=== PATIENT | female | born 1960 | race Caucasian/White ===

== ENCOUNTER 2021-02-17 09:23 | Inpatient (IN) | payer BC ==
[2021-02-17] MEDS ORDERED: Zofran 4 MG/2 ML VIAL IV ONE (09:31)
[2021-02-17] MEDS ORDERED: PROTONIX 40 MG IV IV ONE ×2 (09:31→09:53)
[2021-02-17] MEDS ORDERED: SUBLIMAZE 100 MCG/2 ML IV ONE (09:31)
[2021-02-17] MEDS ORDERED: Sodium Chloride 0.9% 1000 ML 1,000 ML IV STA (09:31)
[2021-02-17] MEDS ORDERED: Sodium Chloride 0.9% 1000 ML 1,000 ML ONE (09:53)
[2021-02-17] MEDS ORDERED: Zofran 4 MG/2 ML VIAL ONE (09:53)
[2021-02-17 10:17] LABS: Absolute Neutrophil Ct (ANC) 3.73 (1.4-6.9); BASOPHIL % 0.2 % (0.0-0.4); Basophil (Absolute #) 0.01 (0-0.4); Eosinophil (Absolute #) 0 (0-0.5); Hematocrit 44.5 % (35-47); Hemoglobin 14.7 gm/dl (12.0-16.0); Lymphocyte (Absolute #) 0.88 (1.0-4.6); Lymphocytes % 16.6 % (24.0-44.0); Mean Cell Volume 92.7 fl (78-100); Mean Corpuscular Hemoglobin 30.6 pg (26-32); Monocyte (Absolute #) 0.68 (0.0-1.3); Monocytes % 12.8 % (0.0-12.0); Neutrophil % 70.4 % (36.0-66.0); Platelet Count 137 K/mm3 (150-450); Red Cell Distribution Width 12.3 % (11.5-14.0); White Blood Count 5.3 K/mm3 (4.0-10.5)
[2021-02-17 10:27] LABS: INR 1.1 (0.8-3.0)
[2021-02-17 10:46] LABS: ANION GAP 16.7 MEQ/L (5-15); BILIRUBIN,TOTAL 0.8 mg/dL (0.2-1.3); Calcium 8.4 mg/dL (8.4-10.2); Creatinine 1 1.01 mg/dL (0.52-1.04); EST GLOMERULAR FILTRATION RATE 59.4 ML/MIN; Potassium 4.4 mmol/L (3.5-5.1)
--- NOTE | 2021-02-17 10:59 | XRAY ---
Indication: Nausea and vomiting. Comparison: None Portable chest demonstrates diffuse bilateral hazy airspace opacities without consolidation/large effusion. Heart not enlarged. Bony thorax intact with mild degenerative changes.
--- NOTE | 2021-02-17 11:38 | XRAY ---
Indication: Nausea and vomiting. Multiple contiguous axial images obtained through the abdomen and pelvis using 80 cc Isovue 370 contrast. Comparison: None Lung bases demonstrates diffuse bilateral patchy airspace disease without effusion. Heart is not enlarged. Moderate size hiatal hernia with partial intrathoracic stomach. Noncontrasted stomach and bowel loops nonobstructed. Minimal sigmoid diverticulosis without diverticulitis. Hysterectomy, appendectomy, and cholecystectomy reported. No free fluid/air. 1.2 cm left renal cyst. Spleen is enlarged measuring 13 cm in greatest axial dimension. Remaining liver, pancreas, spleen, adrenal glands, kidneys, ureters, and bladder are unremarkable. Mild scattered aortoiliac calcifications. No AAA or pathologic retroperitoneal lymphadenopathy. Osseous structures intact with minimal/mild degenerative changes throughout the thoracolumbar spine. Impression: 1. Bilateral patchy airspace disease without consolidation/effusion. 2. Incidental hiatal hernia with partial intrathoracic stomach, sigmoid diverticulosis, left renal cyst, splenomegaly, and chronic bony findings.
--- NOTE | 2021-02-17 12:21 | ERPHSYRPT ---
- History of Present Illness Time Seen by Provider: 02/17/21 09:45 Historian: patient Exam Limitations: no limitations Patient Subjective Stated Complaint: Pt states that she has had dry heaves for the past 3 days and prior to that she had sinus issues and was placed on st eroids, pt now has diarrhea Triage Nursing Assessment: Pt brought to the hospital by her , hypoxic, denies pain, vomiting, placed on 2L NC, skin n/w/d, pulses normal, unable to eat or take meds for 3 days Physician History: Is a 60-year-old white female who presents with 3 days worth of dry heaving and then today she developed diarrhea she has had some fever but denies chills or sweats she says the pain is like and not crampy pain prior to dry heaves it hurts to dry heaves otherwise she has no pain previous surgeries include gallbladder and appendix. Timing/Duration: day(s) (3) Activities at Onset: none Quality: cramping, stabbing Abdominal Pain Onset Location: generalized abdomen Pain Radiation: no radiation Severity of Pain-Max: severe Severity of Pain-Current: moderate Modifying Factors: Improves With: vomiting Associated Symptoms: diarrhea, nausea Previous symptoms: no prior history Allergies/Adverse Reactions: amoxicillin Allergy (Verified 02/17/21 09:47) Home Medications: Amlodipine Besylate 5 mg [Norvasc 5 mg] 5 mg PO DAILY 02/17/21 [History] Oxybutynin Chloride 5 mg PO BID 02/17/21 [History] trandolapriL [Trandolapril] 4 mg PO BID 02/17/21 [History] Travel Risk - International Travel Have you traveled outside of the country in past 3 weeks: No - Coronavirus Screening Are you exhibiting any of the following symptoms?: No Close contact with a COVID-19 positive Pt in past 14-21 Days: No - Vaccine Status Have you recieved a Covid-19 vaccination: No - Review of Systems Constitutional: No Fever, No Chills Eyes: No Symptoms Ears, Nose, & Throat: No Symptoms Respiratory: No Cough, No Dyspnea Cardiac: No Chest Pain, No Edema, No Syncope Abdominal/Gastrointestinal: Abdominal Pain, Nausea, Vomiting, Diarrhea Genitourinary Symptoms: No Dysuria Musculoskeletal: No Back Pain, No Neck Pain Skin: No Rash Neurological: No Dizziness, No Focal Weakness, No Sensory Changes Psychological: No Symptoms Endocrine: No Symptoms All Other Systems: Reviewed and Negative - Past Medical History Pertinent Past Medical History: Yes Cardiac History: Hypertension - Past Surgical History Past Surgical History: Yes Gastrointestinal: Appendectomy, Cholecystectomy Female Surgical History: Hysterectomy - Social History Smoking Status: Never smoker Exposure to second hand smoke: No Drug Use: none Patient Lives Alone: No - Nursing Vital Signs Nursing Vital Signs: Initial Vital Signs Temperature 97.9 F 02/17/21 09:35 Pulse Rate 98 H 02/17/21 09:35 Respiratory Rate 19 02/17/21 09:35 Blood Pressure 125/85 02/17/21 09:35 O2 Sat by Pulse Oximetry 90 L 02/17/21 09:35 Pain Scale Pain Intensity 4 - Physical Exam General Appearance: mild distress, alert Eye Exam: PERRL/EOMI, eyes nml inspection Ears, Nose, Throat Exam: normal ENT inspection, pharynx normal, moist mucous membranes Neck Exam: normal inspection, non-tender, supple, full range of motion Respiratory Exam: normal breath sounds, lungs clear, No respiratory distress Cardiovascular Exam: regular rate/rhythm, normal heart sounds Gastrointestinal/Abdomen Exam: soft, tenderness, No mass, No guarding, No rebound Back Exam: normal inspection, normal range of motion, No CVA tenderness, No vertebral tenderness Extremity Exam: normal inspection, normal range of motion, pelvis stable Neurologic Exam: alert, oriented x 3, cooperative, normal mood/affect, nml cerebellar function, sensation nml, No motor deficits Skin Exam: normal color, warm, dry SpO2: 98 - Course Nursing assessment & vital signs reviewed: Yes EKG Interpreted by Me: RATE (95), Sinus Rhythm, NORMAL AXIS, NORMAL INTERVALS, NORMAL QRS, NORMAL ST-T - Radiology Exams Chest X-ray Interpretation: Interpreted by me (Bilateral bilateral patchy airspace disease without consolidation or effusion) - CT Exams Abdomen/Pelvis CT Interpretation: Negative Ordered Tests: Active Orders 24 hr Category Date Time Status EKG-ER Only STAT Care 02/17/21 09:31 Active IV Insertion STAT Care 02/17/21 09:31 Active ABDOMEN AND PELVIS W CONTRAST [CT] Stat Exams 02/17/21 09:32 Completed CHEST 1 VIEW (PORTABLE) Stat Exams 02/17/21 09:32 Completed AMYLASE Stat Lab 02/17/21 10:05 Completed CBC W DIFF Stat Lab 02/17/21 10:05 Completed CMP Stat Lab 02/17/21 10:05 Completed LIPASE Stat Lab 02/17/21 10:05 Completed Lactic Acid Stat Lab 02/17/21 09:31 Completed PROTIME WITH INR Stat Lab 02/17/21 10:05 Completed TROPONIN Q3H Lab 02/17/21 10:05 Completed TROPONIN Q3H Lab 02/17/21 12:45 Ordered TROPONIN Q3H Lab 02/17/21 15:45 Ordered TROPONIN Q3H Lab 02/17/21 18:45 Ordered TROPONIN Q3H Lab 02/17/21 21:45 Ordered UA W/RFX UR CULTURE Stat Lab 02/17/21 09:32 Ordered Medication Summary Discontinued Medications Generic Name Dose Route Start Last Admin Trade Name Freq PRN Reason Stop Dose Admin Fentanyl Citrate 75 mcg 02/17/21 09:31 Sublimaze 100 Mcg/2 Ml IV 02/17/21 09:32 STAT ONE Sodium Chloride 1,000 mls @ 999 mls/hr 02/17/21 09:31 02/17/21 11:20 Sodium Chloride 0.9% 1000 Ml IV 02/17/21 10:31 Infused .Q1H1M STA Infusion Sodium Chloride Confirm 02/17/21 09:53 Sodium Chloride 0.9% 1000 Ml Administered 02/17/21 09:54 Dose 1,000 mls @ ud .ROUTE .STK-MED ONE Ondansetron HCl 4 mg 02/17/21 09:31 02/17/21 09:54 Zofran 4 Mg/2 Ml Vial IV 02/17/21 09:32 4 mg STAT ONE Administration Ondansetron HCl Confirm 02/17/21 09:53 Zofran 4 Mg/2 Ml Vial Administered 02/17/21 09:54 Dose 4 mg .ROUTE .STK-MED ONE Pantoprazole Sodium 40 mg 02/17/21 09:31 02/17/21 09:54 Protonix 40 Mg Iv IV 02/17/21 09:32 40 mg STAT ONE Administration Pantoprazole Sodium Confirm 02/17/21 09:53 Protonix 40 Mg Iv Administered 02/17/21 09:54 Dose 40 mg IV .STK-MED ONE Lab/Rad Data: Laboratory Result Diagrams 02/17/21 10:05 07/28/21 10:05 Laboratory Results 02/17/21 02/17/21 02/17/21 Range/Units 10:05 10:05 10:05 WBC (4.0-10.5) K/mm3 RBC (4.1-5.4) M/mm3 Hgb (12.0-16.0) gm/dl Hct (35-47) % MCV (78-100) fl MCH (26-32) pg MCHC (32-36) g/dl RDW (11.5-14.0) % Plt Count (150-450) K/mm3 MPV (7.5-11.0) fl Gran % (36.0-66.0) % Eos # (Auto) (0-0.5) Absolute Lymphs (auto) (1.0-4.6) Absolute Monos (auto) (0.0-1.3) Lymphocytes % (24.0-44.0) % Monocytes % (0.0-12.0) % Eosinophils % (0.00-5.0) % Basophils % (0.0-0.4) % Absolute Granulocytes (1.4-6.9) Basophils # (0-0.4) PT 13.0 H (9.4-12.5) SECONDS INR 1.10 (0.8-3.0) Sodium (137-145) mmol/L Potassium (3.5-5.1) mmol/L Chloride (98-107) mmol/L Carbon Dioxide (22-30) mmol/L Anion Gap (5-15) MEQ/L BUN (7-17) mg/dL Creatinine (0.52-1.04) mg/dL Estimated GFR ML/MIN Glucose (74-106) mg/dL Lactic Acid (0.4-2.0) Calcium (8.4-10.2) mg/dL Total Bilirubin (0.2-1.3) mg/dL AST (14-36) U/L ALT (0-35) U/L Alkaline Phosphatase (38-126) U/L Troponin I < 0.012 (0.000-0.034) ng/mL Serum Total Protein (6.3-8.2) g/dL Albumin (3.5-5.0) g/dL Amylase (30-110) U/L Lipase (23-300) U/L SARS-CoV-2 (PCR) POSITIVE A (NEGATIVE) 02/17/21 02/17/21 02/17/21 Range/Units 10:05 10:05 09:31 WBC 5.3 (4.0-10.5) K/mm3 RBC 4.80 (4.1-5.4) M/mm3 Hgb 14.7 (12.0-16.0) gm/dl Hct 44.5 (35-47) % MCV 92.7 (78-100) fl MCH 30.6 (26-32) pg MCHC 33.0 (32-36) g/dl RDW 12.3 (11.5-14.0) % Plt Count 137 L (150-450) K/mm3 MPV 10.0 (7.5-11.0) fl Gran % 70.4 H (36.0-66.0) % Eos # (Auto) 0 (0-0.5) Absolute Lymphs (auto) 0.88 L (1.0-4.6) Absolute Monos (auto) 0.68 (0.0-1.3) Lymphocytes % 16.6 L (24.0-44.0) % Monocytes % 12.8 H (0.0-12.0) % Eosinophils % 0.0 (0.00-5.0) % Basophils % 0.2 (0.0-0.4) % Absolute Granulocytes 3.73 (1.4-6.9) Basophils # 0.01 (0-0.4) PT (9.4-12.5) SECONDS INR (0.8-3.0) Sodium 134 L (137-145) mmol/L Potassium 4.4 (3.5-5.1) mmol/L Chloride 94 L (98-107) mmol/L Carbon Dioxide 28 (22-30) mmol/L Anion Gap 16.7 H (5-15) MEQ/L BUN 18 H (7-17) mg/dL Creatinine 1.01 (0.52-1.04) mg/dL Estimated GFR 59.4 ML/MIN Glucose 146 H (74-106) mg/dL Lactic Acid 1.7 (0.4-2.0) Calcium 8.4 (8.4-10.2) mg/dL Total Bilirubin 0.80 (0.2-1.3) mg/dL AST 73 H (14-36) U/L ALT 38 H (0-35) U/L Alkaline Phosphatase 97 (38-126) U/L Troponin I (0.000-0.034) ng/mL Serum Total Protein 7.0 (6.3-8.2) g/dL Albumin 4.0 (3.5-5.0) g/dL Amylase 81 (30-110) U/L Lipase 74 (23-300) U/L SARS-CoV-2 (PCR) (NEGATIVE) - Progress Progress: improved Discussed with Dr.: Other (Dr Lazo) - Departure Departure Disposition: In-patient Admission Clinical Impression: COVID-19 Condition: Fair Critical Care Time: No Referrals: DOCTOR,NO FAMILY [Primary Care Provider] - Instructions: Wallace Diet, Nausea and Vomiting, Adult
[2021-02-17 13:04] LABS: Appearance SLIGHTLY CLOUDY (CLEAR); Bacteria RARE /HPF (NEGATIVE); Bilirubin NEGATIVE (NEGATIVE); Blood LARGE Ery/ul (0-5); Epithelial Cells RARE /HPF (FEW); Glucose NEGATIVE (NEGATIVE); Ketones TRACE (NEGATIVE); Leukocyte Esterase NEGATIVE (NEGATIVE); Mucus SLIGHT /HPF (NEGATIVE); Nitrite NEGATIVE (NEGATIVE); Protein,Urine Dip NEGATIVE (Negative); Specific Gravity 1.012 (1.005-1.025); Urobilinogen NEGATIVE mg/dL (0-1)
[2021-02-17] MEDS ORDERED: Zofran 4 MG/2 ML VIAL IV PRN (14:55)
[2021-02-17] MEDS ORDERED: REMDESIVIR 200 MG in Sodium Chloride 0.9% 250 ML 250 ML IV ONE (14:56)
[2021-02-17] MEDS ORDERED: Ativan 2 MG/1 ML VIAL IV PRN (14:57)
[2021-02-17] MEDS: Sodium Chloride 0.9% 1000 ML 1,000 ML IV SCH (15:32)
[2021-02-17] MEDS: TYLENOL EXTRA STRENGTH 500 MG PO PRN ×2 (15:40→22:21)
[2021-02-17] MEDS ORDERED: NAPROSYN 375 MG PO SCH (22:00)
[2021-02-17] MEDS ORDERED: TYLENOL 325 MG ONE (22:01)
[2021-02-17] MEDS ORDERED: Naprosyn 500 MG ONE (22:06)
[2021-02-17] MEDS: Mavik 2 MG PO SCH (22:17)
[2021-02-17] MEDS: Ditropan 5 MG PO SCH (22:18)
[2021-02-18 05:04] LABS: Hematocrit 40.3 % (35-47); Mean Cell Volume 95.5 fl (78-100); Mean Corpuscular Hemoglobin 30.8 pg (26-32); Mean Corpuscular Hgb Concent. 32.3 g/dl (32-36); Mean Platelet Volume 10.1 fl (7.5-11.0); Platelet Count 132 K/mm3 (150-450); Red Blood Count 4.22 M/mm3 (4.1-5.4); Red Cell Distribution Width 12.4 % (11.5-14.0); White Blood Count 5.2 K/mm3 (4.0-10.5)
[2021-02-18 05:47] LABS: ALBUMIN 3.3 g/dL (3.5-5.0); ANION GAP 12.2 MEQ/L (5-15); BILIRUBIN,TOTAL 0.5 mg/dL (0.2-1.3); Calcium 7.9 mg/dL (8.4-10.2); Creatinine 1 1.06 mg/dL (0.52-1.04); EST GLOMERULAR FILTRATION RATE 56.2 ML/MIN; Potassium 3.8 mmol/L (3.5-5.1); Total Protein 6.2 g/dL (6.3-8.2)
[2021-02-18 07:26] LABS: Lymphocytes 27 % (24-44); Monocyte 4 % (0.0-12.0); Neutrophils 69 % (36.0-66.0); Platelet Estimate NORMAL (NORMAL); Total Cells Counted 100
[2021-02-18] MEDS: TYLENOL EXTRA STRENGTH 500 MG PO PRN ×2 (07:30→21:47)
[2021-02-18] MEDS: Sodium Chloride 0.9% 1000 ML 1,000 ML IV SCH ×2 (08:32→21:48)
[2021-02-18] MEDS: NORVASC 5 MG PO SCH (09:52)
[2021-02-18] MEDS: ECOTRIN 81 MG PO SCH (09:52)
[2021-02-18] MEDS: Naprosyn 500 MG PO SCH ×2 (09:59→21:49)
[2021-02-18] MEDS: Ditropan 5 MG PO SCH ×2 (09:59→21:50)
[2021-02-18] MEDS: Mavik 2 MG PO SCH ×2 (10:00→21:50)
[2021-02-18] MEDS ORDERED: NON-FORMULARY ITEM (Naproxen Sodium [Aleve] 220 MG) PO SCH (10:00)
[2021-02-18] MEDS: DECADRON 10MG INJ. IV SCH (13:18)
[2021-02-18] MEDS: ENOXAPARIN SODIUM SQ SCH (13:19)
[2021-02-18] MEDS ORDERED: REMDESIVIR 100 MG in Sodium Chloride 0.9% 100 ML BAG 100 ML IV SCH (14:57)
--- NOTE | 2021-02-18 15:39 | HP ---
ADMISSION DIAGNOSES: 1) COVID. 2) Gastroenteritis. 3) COVID pneumonia. CHIEF COMPLAINT: Vomiting, diarrhea, shortness of breath. HISTORY OF PRESENT ILLNESS: The patient is a 60 year-old white female who had been healthy up until three days ago when she started having dry heaves, vomiting and headache. She was seen by a physician and was put on some steroids and now she has diarrhea. was quite concerned as she looked very ill to him and brought her into the hospital where it was found that she was hypoxic on 2 liters of O2 to get her O2 saturation above 88%. She has not eaten in three days. Normally she is healthy. She does not know where she got the COVID but she has been in and out of everywhere and we certainly have it in the community. She said there was no close contact with a positive patient. She has not received the vaccine. She has not had any international travel. PAST MEDICAL HISTORY: Hypertension, some back pain, spastic bladder. PAST SURGICAL HISTORY: Appendectomy. Cholecystectomy. MEDICATIONS: Norvasc 5 q.d., oxybutynin 5 b.i.d., tramadol 4 mg b.i.d. ALLERGIES: AMOXICILLIN. REVIEW OF SYSTEMS: CONSTITUTIONAL: No fevers. No chills. Aching all over. Vomiting and diarrhea. HEENT: No problems hearing or seeing. No taste change. CHEST: No cough. She did feel short of breath when she came in. CARDIAC: No history except for hypertension. No heart attacks, heart failure or valve problems. ABDOMEN: Diffuse abdominal pain, nausea, vomiting and diarrhea getting worse over three days. : She has frequent urination unless she takes oxybutynin. MUSCULOSKELETAL: No severe problems. Takes tramadol occasionally for pain. SOCIAL HISTORY: Never smoked, not exposed. Lives with her . PHYSICAL EXAMINATION: The patient is appropriately aged, pleasant, alert, orientated and looks ill. VITAL SIGNS: Temperature 97F, pulse 100, respirations 20, blood pressure 120/70. O2 saturation on 2 liters is 92%. Pain intensity is about 2 when I saw her. HEENT: Mouth is dry. NECK: Supple without adenopathy. CHEST: Clear. CVS: No murmurs or gallops. ABDOMEN: Soft. No tenderness. No masses. No organomegaly. EXTREMITIES: No edema. Knees are normal. Good pulses. IMPRESSION: 1) The patient has COVID gastroenteritis with vomiting and dehydration probably 5 to 10%. 2) The patient on chest x-ray does have some bilateral patchy infiltrates and she was hypoxic when she went to the emergency room. PLAN: The patient will be admitted with antiemetic, IV fluids. She will be given Remdesivir, Decadron and observed. I noticed her D-dimer on 02/18/2021 was only 911 so it was not very bad. PROGNOSIS: Good.
[2021-02-19] MEDS: DECADRON 10MG INJ. IV SCH (09:39)
[2021-02-19] MEDS: ENOXAPARIN SODIUM SQ SCH (09:39)
[2021-02-19] MEDS: NORVASC 5 MG PO SCH (09:39)
[2021-02-19] MEDS: ECOTRIN 81 MG PO SCH (09:39)
[2021-02-19] MEDS: Ditropan 5 MG PO SCH (09:55)
[2021-02-19] MEDS: Naprosyn 500 MG PO SCH (09:55)
[2021-02-19] MEDS: Mavik 2 MG PO SCH (09:56)
[2021-02-19 12:28] VITALS: BP 122/70; PULSE 70; O2SAT 95
== END 2021-02-19 14:11 | disposition home or self-care (01) | DRG 179 ==
LOC: ED 09:23 → MED SURG 12:55
PROVIDERS: ADMIT Family Medicine; ATTEND Family Medicine
DX: U07.1 COVID-19 (principal); J12.82 Pneumonia due to coronavirus disease 2019; K52.9 Noninfective gastroenteritis and colitis, unspecified; R11.2 Nausea with vomiting, unspecified; I10 Essential (primary) hypertension; Z79.899 Other long term (current) drug therapy; E86.0 Dehydration
CPT/HCPCS: 36000; 36415; 71045; 74177; 80053; 81001; 82150; 83605; 83690; 84484; 85025; 85379; 85610; 93005; 94762; 96360; 96374; 96375; 99284; J1100; J1650; J2405; U0003; A9270-GY

== ENCOUNTER 2022-05-18 15:35 | Emergency (ER) | payer BC ==
--- NOTE | 2022-05-18 15:43 | ERPHSYRPT ---
- History of Present Illness Time Seen by Provider: 05/18/22 15:43 Historian: patient Exam Limitations: no limitations Physician History: This is a 62-year-old white female who has had an appendectomy, hysterectomy and cholecystectomy in the past and presents with sudden onset of left lower quadrant and left flank pain that occurred approximately noon today prior to ar rival. She had associated nausea and vomiting. Patient denies chest pain. She denies shortness of breath. Timing/Duration: today Quality: sharpness, stabbing Abdominal Pain Onset Location: flank (Left) Pain Radiation: LLQ (Left) Severity of Pain-Max: moderate Severity of Pain-Current: moderate Modifying Factors: Improves With: nothing Associated Symptoms: diaphoresis, nausea, vomiting, No chest pain, No shortness of breath Previous symptoms: no prior history Allergies/Adverse Reactions: amoxicillin Allergy (Verified 05/18/22 15:43) Penicillins Allergy (Verified 05/18/22 15:43) Home Medications: Amlodipine Besylate 5 mg [Norvasc 5 mg] 5 mg PO DAILY 02/17/21 [History] Aspirin EC 81 mg [Ecotrin 81 mg] 81 mg PO DAILY 02/17/21 [History] Oxybutynin Chloride 1 tab PO BID 05/18/22 [History] trandolapriL [Trandolapril] 1 tab PO BID 05/18/22 [History] Travel Risk - International Travel Have you traveled outside of the country in past 3 weeks: No - Coronavirus Screening Are you exhibiting any of the following symptoms?: No Close contact with a COVID-19 positive Pt in past 14-21 Days: No - Vaccine Status Have you recieved a Covid-19 vaccination: No - Review of Systems Constitutional: No Symptoms Eyes: No Symptoms Ears, Nose, & Throat: No Symptoms Respiratory: No Symptoms Cardiac: Orthopnea Abdominal/Gastrointestinal: Abdominal Pain (Left lower quadrant) Genitourinary Symptoms: Flank Pain (Left) Musculoskeletal: No Symptoms Skin: No Symptoms Neurological: No Symptoms Psychological: No Symptoms Endocrine: No Symptoms Hematologic/Lymphatic: No Symptoms Immunological/Allergic: No Symptoms All Other Systems: Reviewed and Negative - Past Medical History Pertinent Past Medical History: Yes Cardiac History: Hypertension - Past Surgical History Past Surgical History: Yes Gastrointestinal: Appendectomy, Cholecystectomy Female Surgical History: Hysterectomy - Social History Smoking Status: Never smoker Exposure to second hand smoke: No Drug Use: none Patient Lives Alone: No - Nursing Vital Signs Nursing Vital Signs: Initial Vital Signs Temperature 98.1 F 05/18/22 15:43 Pulse Rate 78 05/18/22 15:43 Respiratory Rate 18 05/18/22 15:43 Blood Pressure 126/88 05/18/22 15:43 Pain Scale Pain Intensity 2 - Physical Exam General Appearance: no apparent distress, alert, anxiety Eye Exam: PERRL/EOMI, eyes nml inspection Ears, Nose, Throat Exam: normal ENT inspection, moist mucous membranes Neck Exam: normal inspection, non-tender, supple, full range of motion Respiratory Exam: normal breath sounds, lungs clear, airway intact, No chest tenderness, No respiratory distress Cardiovascular Exam: regular rate/rhythm, normal heart sounds, normal peripheral pulses Gastrointestinal/Abdomen Exam: soft, normal bowel sounds, tenderness (Mild left lower quadrant), No guarding, No rebound Pelvic Exam: not done Rectal Exam: not done Back Exam: normal inspection, normal range of motion, CVA tenderness, No vertebral tenderness (Left) Extremity Exam: normal inspection, normal range of motion, pelvis stable Neurologic Exam: alert, oriented x 3, cooperative, floor care specialist II-XII nml as tested, normal mood/affect, nml cerebellar function, nml station & gait, sensation nml Skin Exam: normal color, warm, dry Lymphatic Exam: No adenopathy SpO2 Interpretation: normal O2 Delivery: Room Air - Course Nursing assessment & vital signs reviewed: Yes Ordered Tests: Active Orders 24 hr Category Date Time Status IV Insertion STAT Care 05/18/22 15:55 Active Oxygen-ED Only Nasal Cannula 2 lpm Care 05/18/22 16:55 Active ABDOMEN AND PELVIS W/0 CONTRAS [CT] Stat Exams 05/18/22 16:13 Completed AMYLASE Stat Lab 05/18/22 15:50 Completed CBC W DIFF Stat Lab 05/18/22 15:50 Completed CMP Stat Lab 05/18/22 15:50 Completed CULTURE,URINE Stat Lab 05/18/22 17:16 Received LIPASE Stat Lab 05/18/22 15:50 Completed UA W/RFX CULTURE Stat Lab 05/18/22 17:16 Completed Medication Summary Discontinued Medications Generic Name Dose Route Start Last Admin Trade Name Freq PRN Reason Stop Dose Admin Hydromorphone HCl 1 mg 05/18/22 15:55 05/18/22 16:02 Hydromorphone 1 Mg/1ml Inj 1 Mg/Ml Syringe IV 05/18/22 15:56 1 mg STAT ONE Administration Hydromorphone HCl Confirm 05/18/22 15:59 Hydromorphone 1 Mg/1ml Inj 1 Mg/Ml Syringe Administered 05/18/22 16:00 Dose 1 mg .ROUTE .STK-MED ONE Hydromorphone HCl 1 mg 05/18/22 17:43 Hydromorphone 1 Mg/1ml Inj 1 Mg/Ml Syringe IV 05/18/22 17:44 STAT ONE Sodium Chloride 1,000 mls @ 999 mls/hr 05/18/22 15:55 05/18/22 17:03 Sodium Chloride 0.9% 1000 Ml IV 05/18/22 16:55 Infused .Q1H1M STA Infusion Sodium Chloride Confirm 05/18/22 15:59 Sodium Chloride 0.9% 1000 Ml Administered 05/18/22 16:00 Dose 1,000 mls @ ud .ROUTE .STK-MED ONE Ketorolac Tromethamine 30 mg 05/18/22 15:55 05/18/22 16:02 Ketorolac Tromethamine 30 Mg/Ml Inj IV 05/18/22 15:56 30 mg STAT ONE Administration Ketorolac Tromethamine Confirm 05/18/22 15:59 Ketorolac Tromethamine 30 Mg/Ml Inj Administered 05/18/22 16:00 Dose 30 mg .ROUTE .STK-MED ONE Ondansetron HCl 4 mg 05/18/22 15:55 05/18/22 16:02 Ondansetron Hcl 4 Mg/2 Ml Vial IV 05/18/22 15:56 4 mg STAT ONE Administration Ondansetron HCl Confirm 05/18/22 15:59 Ondansetron Hcl 4 Mg/2 Ml Vial Administered 05/18/22 16:00 Dose 4 mg .ROUTE .STK-MED ONE Ondansetron HCl 4 mg 05/18/22 17:43 Ondansetron Hcl 4 Mg/2 Ml Vial IV 05/18/22 17:44 STAT ONE Lab/Rad Data: Laboratory Result Diagrams 05/18/22 15:50 05/18/22 15:50 Laboratory Results 05/18/22 05/18/22 05/18/22 Range/Units 17:16 15:50 15:50 WBC 9.8 (4.0-10.5) x10^3/uL RBC 4.01 L (4.1-5.4) x10^6/uL Hgb 12.9 (12.0-16.0) g/dL Hct 39.8 (35-47) % MCV 99.3 (78-100) fL MCH 32.2 H (26-32) pg MCHC 32.4 (32-36) g/dL RDW 12.0 (11.5-14.0) % Plt Count 230 (150-450) x10^3/uL MPV 10.0 (7.5-11.0) fL Gran % 71.7 H (36.0-66.0) % Immature Gran % (Auto) 0.3 (0.00-0.4) % Nucleat RBC Rel Count 0.0 (0.00-0.1) % Eos # (Auto) 0.06 (0-0.5) x10^3/uL Immature Gran # (Auto) 0.03 (0.00-0.03) x10^3u/L Absolute Lymphs (auto) 1.83 (1.0-4.6) x10^3/uL Absolute Monos (auto) 0.81 (0.0-1.3) x10^3/uL Absolute Nucleated RBC 0.00 (0.00-0.01) x10^3u/L Lymphocytes % 18.7 L (24.0-44.0) % Monocytes % 8.3 (0.0-12.0) % Eosinophils % 0.6 (0.00-5.0) % Basophils % 0.4 (0.0-0.4) % Absolute Granulocytes 7.03 H (1.4-6.9) x10^3/uL Basophils # 0.04 (0-0.4) x10^3/uL Sodium 137 (137-145) mmol/L Potassium 4.5 (3.5-5.1) mmol/L Chloride 104 (98-107) mmol/L Carbon Dioxide 28 (22-30) mmol/L Anion Gap 9.9 (5-15) MEQ/L BUN 21 H (7-17) mg/dL Creatinine 1.13 H (0.52-1.04) mg/dL Estimated GFR 51.9 ML/MIN Glucose 118 H (74-106) mg/dL Calcium 8.8 (8.4-10.2) mg/dL Total Bilirubin 0.60 (0.2-1.3) mg/dL AST 23 (14-36) U/L ALT 19 (0-35) U/L Alkaline Phosphatase 141 H (38-126) U/L Serum Total Protein 7.3 (6.3-8.2) g/dL Albumin 4.4 (3.5-5.0) g/dL Amylase 68 (30-110) U/L Lipase 48 (23-300) U/L Urinalys Dipstick Clnc MAIN LAB Urine Color YELLOW (YELLOW) Urine Appearance CLEAR (CLEAR) Urine pH 5.5 (5-6) Ur Specific [place] >=1.030 (1.005-1.025) POC Urine Protein Conf 30 (Negative) Urine Ketones SMALL-15 (NEGATIVE) Urine Nitrite NEGATIVE (NEGATIVE) Urine Bilirubin NEGATIVE (NEGATIVE) Urine Urobilinogen 0.2 (0-1) mg/dL Urine Leukocytes TRACE (NEGATIVE) Urine WBC (Auto) 16-25 (0-5) /HPF Urine RBC (Auto) 11-15 (0-2) /HPF U Epithel Cells (Auto) RARE (FEW) /HPF Urine Bacteria (Auto) RARE (NEGATIVE) /HPF Urine RBC TRACE-INTACT (0-5) [place] Urine Mucus (Auto) SLIGHT (NEGATIVE) /HPF Ur Culture Indicated? YES Urine Glucose NEGATIVE (NEGATIVE) mg/dL - Progress Progress: improved, re-examined Progress Note: 05/18/22 17:09 CAT scan of the abdomen and pelvis without contrast shows a new left 1 to 2 mm urinary bladder calculus adjacent to the UVJ. There is mild perinephric stranding and mild left hydronephrosis. There is also mild hydroureter consistent with recent passage of ureteral calculus. Counseled pt/family regarding: lab results, diagnosis, need for follow-up, rad results - Departure Departure Disposition: Home Clinical Impression: Left ureteral calculus, UTI (urinary tract infection) Condition: Stable Critical Care Time: No Referrals: DOCTOR,NO FAMILY [Primary Care Provider] - Follow up/PCP as directed Additional Instructions: Drink plenty of fluids. Take your medication as prescribed. Follow-up with farhan sheth primary care physician for further evaluation management. Prescriptions: Hydrocodone/APAP 5/325 [[place] 5/325 mg] 1 each PO Q8H PRN PRN #6 tablet MDD 3 PRN Reason: Pain Promethazine HCl 25 mg [Phenergan 25 mg] 25 mg PO Q8H PRN PRN #10 tablet PRN Reason: Nausea/Vomiting Ciprofloxacin [Cipro 500 MG] 500 mg PO BID #14 tablet
[2022-05-18] MEDS ORDERED: TORAdol 30 mg Injection IV ONE (15:55)
[2022-05-18] MEDS ORDERED: Sodium Chloride 0.9% 1000 ML 1,000 ML IV STA (15:55)
[2022-05-18] MEDS ORDERED: Hydromorphone 1 mg/ml Injection IV ONE ×2 (15:55→17:43)
[2022-05-18] MEDS ORDERED: Zofran 4 MG/2 ML VIAL IV ONE ×2 (15:55→17:43)
[2022-05-18] MEDS ORDERED: Sodium Chloride 0.9% 1000 ML 1,000 ML ONE (15:59)
[2022-05-18] MEDS ORDERED: TORAdol 30 mg Injection ONE (15:59)
[2022-05-18] MEDS ORDERED: Hydromorphone 1 mg/ml Injection ONE ×2 (15:59→17:47)
[2022-05-18] MEDS ORDERED: Zofran 4 MG/2 ML VIAL ONE ×2 (15:59→17:47)
[2022-05-18 16:06] LABS: Absolute Neutrophil Ct (ANC) 7.03 x10^3/uL (1.4-6.9); Basophil (Absolute #) 0.04 x10^3/uL (0-0.4); Eosinophil % 0.6 % (0.00-5.0); Eosinophil (Absolute #) 0.06 x10^3/uL (0-0.5); Hematocrit 39.8 % (35-47); Hemoglobin 12.9 g/dL (12.0-16.0); Lymphocyte (Absolute #) 1.83 x10^3/uL (1.0-4.6); Lymphocytes % 18.7 % (24.0-44.0); Mean Cell Volume 99.3 fL (78-100); Mean Corpuscular Hemoglobin 32.2 pg (26-32); Mean Corpuscular Hgb Concent. 32.4 g/dL (32-36); Monocyte (Absolute #) 0.81 x10^3/uL (0.0-1.3); Monocytes % 8.3 % (0.0-12.0); Neutrophil % 71.7 % (36.0-66.0); Platelet Count 230 x10^3/uL (150-450); Red Blood Count 4.01 x10^6/uL (4.1-5.4); White Blood Count 9.8 x10^3/uL (4.0-10.5)
[2022-05-18 16:22] LABS: ALBUMIN 4.4 g/dL (3.5-5.0); ANION GAP 9.9 MEQ/L (5-15); BILIRUBIN,TOTAL 0.6 mg/dL (0.2-1.3); Calcium 8.8 mg/dL (8.4-10.2); Creatinine 1 1.13 mg/dL (0.52-1.04); EST GLOMERULAR FILTRATION RATE 51.9 ML/MIN; Potassium 4.5 mmol/L (3.5-5.1); Total Protein 7.3 g/dL (6.3-8.2)
--- NOTE | 2022-05-18 16:43 | XRAY ---
Indication: Left flank pain. Multiple contiguous axial images obtained through the abdomen and pelvis without contrast using renal stone protocol. Comparison: February 17, 2021 Lung bases clear. Heart not enlarged. Again moderate sized hiatal hernia with partial intrathoracic stomach. Urinary bladder demonstrates new 1-2 mm calculus adjacent to the left UVJ. Proximal left ureter is slightly prominent along with mild left hydronephrosis and perinephric stranding favoring passage of side calculus. Noncontrasted stomach and bowel loops appear nonobstructed. Again minimal descending and sigmoid diverticulosis without diverticulitis. No free fluid/air. Stable small left upper renal cyst, hysterectomy, cholecystectomy, and appendectomy. Remaining liver, pancreas, spleen, right kidney, right ureter, and bladder are unremarkable for noncontrast exam. Again mild scattered aortoiliac calcifications without AAA. Osseous structures intact again with mild degenerative changes throughout the visualized spine. Impression: 1. New 1-2 mm urinary bladder calculus adjacent to the left UVJ. Mild left hydronephrosis with mild perinephric stranding and minimal left hydroureter consistent with recent passage of calculus. 2. Again hiatal hernia with partial intrathoracic stomach, colonic diverticulosis, left renal cyst, and degenerative spondylosis.
[2022-05-18 17:25] LABS: Appearance CLEAR (CLEAR); Bilirubin NEGATIVE (NEGATIVE); Dipstick done @ ? MAIN LAB; Glucose NEGATIVE (NEGATIVE); Ketones SMALL-15 (NEGATIVE); Nitrite NEGATIVE (NEGATIVE); Ph 5.5 (5-6); Protein,Urine Dip 30 (Negative); RBC TRACE-INTACT Ery/ul (0-5); Specific Gravity >=1.030 (1.005-1.025); Urobilinogen 0.2 mg/dL (0-1)
[2022-05-18 17:28] LABS: Bacteria RARE /HPF (NEGATIVE); Epithelial Cells RARE /HPF (FEW); Mucus SLIGHT /HPF (NEGATIVE); Urine Cultured Indicated? YES
[2022-05-18] MEDS ORDERED: ROCEPHIN 1 Gm-D5w 50 ml Bag** 1 G/50 ML IVPB IV STA (17:45)
[2022-05-18] MEDS ORDERED: ROCEPHIN 1 Gm-D5w 50 ml Bag** 1 G/50 ML IVPB IV ONE (17:47)
[2022-05-18 18:17] VITALS: BP 123/69; PULSE 72; O2SAT 92
[2022-05-18] MEDS ORDERED: ZOFRAN ODT 4 MG PO ONE (18:43)
[2022-05-18] MEDS ORDERED: ZOFRAN ODT 4 MG ONE (18:44)
== END 2022-05-18 18:50 | disposition home or self-care (01) ==
LOC: ED 15:35
DX: N13.2 Hydronephrosis with renal and ureteral calculous obstruction (principal); N39.0 Urinary tract infection, site not specified; R10.32 Left lower quadrant pain; R11.2 Nausea with vomiting, unspecified; I10 Essential (primary) hypertension; Z79.891 Long term (current) use of opiate analgesic; Z28.310 Unvaccinated for COVID-19
CPT/HCPCS: 36000; 36415; 74176; 80053; 81015; 82150; 83690; 85025; 87077; 87086; 87186; 96365; 96374; 96375; 96376; 99284; J0696; J1170; J1885; J2405; Q0162